=== PATIENT | female | born 1955 ===

== ENCOUNTER 2018-09-11 15:46 | Emergency (ER) | payer MEDICARE, OTHER ==
[2018-09-11 15:54] VITALS: TEMP 98.1
[2018-09-11] MEDS ORDERED: Albuterol-Ipratrop 3 mg / 0.5 (3 ml) UD INH STA (16:17)
--- NOTE | 2018-09-11 16:22 | ED PDOC ---
HPI: SOB/CHF/COPD Time Seen by Provider: 09/11/18 16:00 Chief Complaint (Nursing): Shortness Of Breath Chief Complaint (Provider): Shortness Of Breath History Per: Patient History/Exam Limitations: no limitations Onset/Duration Of Symptoms: Days Current Symptoms Are (Timing): Still Present Associated Symptoms: denies: Fever, Chest Pain, Productive Cough, Leg/Calf Pain Additional Complaint(s): 63 year old female with a past medical history of diabetes and hypertension who is presenting to the ED for evaluation of shortness of breath associated with cough ongoing for a few days. Patient denies any fevers, phlegm, chest pain, similar episodes in the past, leg swelling, or recent travel. She offers no other medical complaints at this time. PMD: [place] Past Medical History Reviewed: Historical Data, Nursing Documentation, Vital Signs Vital Signs: Last Vital Signs Temp 98.1 F 09/11/18 15:51 Pulse 85 09/11/18 15:51 Resp 16 09/11/18 16:12 BP 143/72 09/11/18 15:51 Pulse Ox 99 09/11/18 16:12 - Medical History PMH: Dementia (CT scan showed early onset Dementia), HTN, Hypothyroidism, Osteoporosis - Surgical History Other surgeries: Kidney surgery - Family History Family History: States: Unknown Family Hx - Social History Current smoker - smoking cessation education provided: No Alcohol: None Drugs: Denies - Immunization History Hx Tetanus Toxoid Vaccination: Yes Hx Influenza Vaccination: Yes Hx Pneumococcal Vaccination: Yes - Home Medications Home Medications: Ambulatory Orders Medication Instructions Recorded Acetaminophen [Tylenol] 325 mg PO Q6 #20 tab 06/19/15 Albuterol 0.083% [Albuterol 0.083% 3 ml IH Q6H PRN #30 neb 09/11/18 Inhal Jackie (2.5 mg/3 ml) UD] Albuterol HFA [Ventolin HFA 90 2 puff IH [id number] PRN #1 bottle 09/11/18 mcg/actuation (8 g)] Nebulizer [Compact Compressor 1 dev XX PRN PRN #1 dev 09/11/18 Nebulizer] - Allergies Allergies/Adverse Reactions: Allergies Allergy/AdvReac Type Severity Reaction Status Date / Time house dust Allergy Mild RASH Verified 09/11/18 17:06 loratadine [From Claritin] Allergy Mild RASH Verified 09/11/18 17:06 cat dander Allergy RASH Verified 09/11/18 17:06 dog dander Allergy RASH Verified 09/11/18 17:06 tree and shrub pollen Allergy RASH Verified 09/11/18 17:06 weed pollen Allergy RASH Verified 09/11/18 17:06 Review of Systems ROS Statement: Except As Marked, All Systems Reviewed And Found Negative Constitutional: Negative for: Fever Cardiovascular: Negative for: Chest Pain Respiratory: Positive for: Cough, Shortness of Breath. Negative for: Sputum Musculoskeletal: Negative for: Leg Pain Physical Exam - Reviewed Nursing Documentation Reviewed: Yes Vital Signs Reviewed: Yes - Physical Exam Appears: Positive for: Non-toxic, No Acute Distress Head Exam: Positive for: ATRAUMATIC, NORMAL INSPECTION, NORMOCEPHALIC Skin: Positive for: Normal Color, Warm, DRY Eye Exam: Positive for: EOMI, Normal appearance, PERRL ENT: Positive for: Normal ENT Inspection Neck: Positive for: Normal, Painless ROM, Supple Cardiovascular/Chest: Positive for: Regular Rate, Rhythm. Negative for: Murmur Respiratory: Positive for: Normal Breath Sounds, Respiratory Distress (mild ) Gastrointestinal/Abdominal: Positive for: Normal Exam, Soft. Negative for: Tenderness Extremity: Positive for: Normal ROM. Negative for: Pedal Edema, Calf Tender ness, Deformity, Swelling Neurological/Psych: Positive for: Awake, Alert, Normal Tone, Oriented. Negative for: Motor/Sensory Deficits - Laboratory Results Result Diagrams: 09/11/18 16:30 09/11/18 16:30 - ECG Interpretation Of ECG: NSR @ 78, LVH. O2 Sat by Pulse Oximetry: 99 (RA) Pulse Ox Interpretation: Normal Medical Decision Making Medical Decision Making: Time: 16:16 Plan: --EKG --BNP --CMP --Troponin --ED Urine Dipstick --CBC --D Dimer --Coags --CXR --Blood Culture Accession No. : [id number] Patient Name / ID : WILLIE LAGOS / [id number] Exam Date : 09/11/2018 16:36:54 ( Approved ) Study Comment : Sex / Age : F / 63Y Creator : Dictator : Ramez Mark MD Ginner Helper : Security Installer : Ramez Mark MD Approver2 : Report Date : My Comment : Date of service: 09/11/2018 HISTORY: SOB COMPARISON: 09/04/2013 FINDINGS: LUNGS: No active pulmonary disease. PLEURA: No significant pleural effusion identified, no pneumothorax apparent. CARDIOVASCULAR: No aortic atherosclerotic calcification present. Normal cardiac size. No pulmonary vascular congestion. OSSEOUS STRUCTURES: No significant abnormalities. VISUALIZED UPPER ABDOMEN: Normal. OTHER FINDINGS: None. IMPRESSION: No active disease. Name: DEMOND TAPIA Exam Date: Sep 11, 2018 7:35:36 PM EDT Modality Type: CT Description: CTA CHEST FOR PE Gender: F Laterality: Not applicable : 51 Referring Physician: Emergency Room direct number EXAM: CTA Chest with Intravenous Contrast for Pulmonary Embolism CLINICAL HISTORY: Dyspnea TECHNIQUE: Axial CTA images of the chest with intravenous contrast using a pulmonary embolism protocol. Reconstructed images were created and reviewed. 210.61 mGy-cm CONTRAST: With; Visipaque [id number] 63cc was administered without incident. COMPARISON: None provided. FINDINGS: PULMONARY ARTERIES No evidence of central or segmental pulmonary embolism is seen. AORTA There is no evidence for aneurysm or dissection of the thoracic aorta. LUNGS The lungs appear clear. PLEURAL SPACES No pneumothorax evident. No pleural effusions. HEART There is mild cardiomegaly. No pericardial effusion. Moderate atherosclerotic plaquing is seen within the aortic arch and descending thoracic aorta. LYMPH NODES No lymphadenopathy is evident. BONES No focal osseous abnormality or acute fracture. UPPER ABDOMEN Images of the upper abdomen are unremarkable. IMPRESSION: 1. Unremarkable pulmonary embolism protocol CTA of the chest. 2. Mild cardiomegaly. 3. No acute pulmonary disease. Electronically signed on Sep 11, 2018 8:13:38 PM EDT by: Jose Manuel Ortiz M.D., MBA Certified By [facility] & [facility] Fellowship Trained MRI and CT Specialist 20:00 Pt felt better after nebulizer treatment. Results discussed, will follow-up with N[facility]. Scribe Attestation: Documented by Shira Lester, acting as a scribe for Yesi Mujica MD. Provider Scribe Attestation: All medical record entries made by the Scribe were at my direction and personally dictated by me. I have reviewed the chart and agree that the record accurately reflects my personal performance of the history, physical exam, medical decision making, and the department course for this patient. I have also personally directed, reviewed, and agree with the discharge instructions and disposition. Disposition - Clinical Impression Clinical Impression: Dyspnea - Disposition Disposition: Routine/Home Disposition Time: 20:22 Condition: IMPROVED Additional Instructions: FOLLOW-UP WITH [facility] WITHIN 2 DAYS FOR REEVALUATION. Prescriptions: Albuterol HFA [Ventolin HFA 90 mcg/actuation (8 g)] 2 puff IH [id number] PRN #1 bottle PRN Reason: Shortness Of Breath Albuterol 0.083% [Albuterol 0.083% Inhal Jackie (2.5 mg/3 ml) UD] 3 ml IH Q6H PRN #30 neb PRN Reason: Shortness Of Breath Nebulizer [Compact Compressor Nebulizer] 1 dev XX PRN PRN #1 dev PRN Reason: Shortness Of Breath Instructions: Shortness of Breath (Dyspnea) Forms: [employer] ([place])
[2018-09-11 16:41] LABS: BASO % 0.6 % (0.0-2.0); EOS # 0.1 K/uL (0.0-0.7); EOS % 1.4 % (0.0-4.0); HEMOGLOBIN 12.9 g/dL (12.0-16.0); LYMPH # 2.2 K/uL (1.0-4.3); LYMPH % 30.1 % (20.0-40.0); MEAN CELL VOLUME 89.1 fl (81.0-99.0); MEAN CORPUSCULAR HEMOGLOBIN 29.1 pg (27.0-31.0); MEAN CORPUSCULAR HGB CONC 32.7 g/dL (33.0-37.0); MONO # 0.5 K/uL (0.0-0.8); MONO % 6.8 % (0.0-10.0); NEUT # 4.4 K/uL (1.8-7.0); NEUT % 61.1 % (50.0-75.0); RBC 4.45 Mil/uL (3.80-5.20); RED CELL DISTRIBUTION WIDTH 13.6 % (11.5-14.5); WHITE BLOOD COUNT 7.2 K/uL (4.8-10.8)
[2018-09-11 16:51] LABS: ALB/GLOB RATIO 1.5 (1.0-2.1); ALBUMIN 4.5 g/dL (3.5-5.0); ALT/SGPT 62 U/L (9-52); AST/SGOT 55 U/L (14-36); BLOOD UREA NITROGEN 11 mg/dl (7-17); CALCIUM 9.9 mg/dL (8.4-10.2); GFR NON-AFRICAN AMERICAN > 60; INR 0.9; PROTHROMBIN TIME 10.4 Seconds (9.8-13.1)
[2018-09-11 16:54] LABS: PARTIAL THROMBOPLASTIN TIME 30.8 Seconds (25.6-37.1)
[2018-09-11 17:01] LABS: B-TYPE NATRIURETIC PEPTIDE 398 pg/ml (0-900)
[2018-09-11] MEDS ORDERED: Albuterol-Ipratrop 3 mg / 0.5 (3 ml) UD ONE (17:24)
[2018-09-11 17:32] LABS: D DIMER < 200 ng/mlDDU (0-230)
--- NOTE | 2018-09-11 17:52 | RAD ---
Date of service: 09/11/2018 HISTORY: SOB COMPARISON: 09/04/2013 FINDINGS: LUNGS: No active pulmonary disease. PLEURA: No significant pleural effusion identified, no pneumothorax apparent. CARDIOVASCULAR: No aortic atherosclerotic calcification present. Normal cardiac size. No pulmonary vascular congestion. OSSEOUS STRUCTURES: No significant abnormalities. VISUALIZED UPPER ABDOMEN: Normal. OTHER FINDINGS: None. IMPRESSION: No active disease.
[2018-09-11] MEDS ORDERED: Iodixanol 320 MG/ML 100 ML BOTTLE IV ONE (19:30)
[2018-09-11] MEDS ORDERED: Sodium Chloride 0.9% 50 ML IV ONE (19:31)
[2018-09-11 20:28] VITALS: BP 165/79; PULSE 81; RESP 17
--- NOTE | 2018-09-12 12:39 | CT ---
Date of service: 09/11/2018 PROCEDURE: CT Chest with contrast (Pulmonary Angiogram) HISTORY: Dyspnea COMPARISON: None available. TECHNIQUE: Axial computed tomography images were obtained of the chest in the pulmonary arterial phase of enhancement. Coronal and sagittal reformatted images were created and reviewed. Intravenous contrast dose: Radiation dose: Total exam DLP = 210.62 mGy-cm. This CT exam was performed using one or more of the following dose reduction techniques: Automated exposure control, adjustment of the mA and/or kV according to patient size, and/or use of iterative reconstruction technique. FINDINGS: PULMONARY ARTERIES: Unremarkable. No pulmonary embolism. AORTA: No acute findings. No thoracic aortic aneurysm. No aortic atherosclerotic calcification or mural plaque present. LUNGS: Unremarkable. No nodule, mass or pulmonary consolidation. PLEURAL SPACES: Unremarkable. No effusion or pneumothorax. HEART: Cardiomegaly.. No significant pericardial effusion. LYMPH NODES: No lymphadenopathy. BONES, CHEST WALL: Unremarkable. No fracture or destructive lesion OTHER FINDINGS: Unremarkable. IMPRESSION: Cardiomegaly. No pulmonary embolus.
--- NOTE | 2018-09-12 17:57 | CARD ---
APPROVED REPORT Date of service: 09/11/2018 EKG Measurement Heart [id number] <Conclusion> Normal sinus rhythm Left ventricular hypertrophy with repolarization abnormality Abnormal ECG
[2018-09-13 16:04] VITALS: O2SAT 99
== END 2018-09-11 20:32 | disposition home or self-care (01) ==
LOC: H.ER 15:46
DX: R06.00 Dyspnea, unspecified (principal); E03.9 Hypothyroidism, unspecified; F03.90 Unspecified dementia, unspecified severity, without behavioral disturbance, psychotic disturbance, mood disturbance, and anxiety; I10 Essential (primary) hypertension; M81.0 Age-related osteoporosis without current pathological fracture
CPT/HCPCS: 71045; 71275; 80053; 83880; 84484; 85025; 85378; 85610; 85730; 87040; 93005; 94640; 99285; Q9967